=== PATIENT | male | born 1940 | race Two or more races ===

== ENCOUNTER 2018-06-06 09:20 | Inpatient (IN) | payer MEDICARE, MEDICAID ==
[~2018-06-06] VITALS: Ht 170.2 cm; Wt 93.0 kg
[~2018-06-06 09:20] MED LIST: ASA5EC; CEPH500C2; COLL30OI; GABA-290; HYDR-4009; INSU100I19; INSU100I3; LISI40TA4; METO100T16; SIMV20TA6
[2018-06-06] MEDS ORDERED: SODIUM CHLORIDE 0.9% 500 ML IV ONE (10:15)
[2018-06-06 11:19] LABS: BASOPHILS % 0.5 % (0.0-2.0); EOSINOPHILS % 0.4 % (0.0-5.0); HEMATOCRIT. 37.5 % (42.0-52.0); HEMOGLOBIN. 12.7 g/dL (14.0-18.0); MEAN CORPUSCULAR HEMOGLOBIN 32.1 pg (28.0-32.0); MEAN CORPUSCULAR VOLUME 94.6 fL (80.0-94.0); MONOCYTES % 6.9 % (2.0-8.0); NEUTROPHILS % 81.2 % (40.0-76.0); PLATELET 174 x1000/uL (130-400); RED BLOOD CELL COUNT 3.96 mill/uL (4.7-6.1); RED CELL DISTRIBUTION WIDTH 13.9 % (11.6-14.6)
[2018-06-06 11:25] LABS: CHLORIDE 112 mEq/L (98-107); PROTHROMBIN TIME 10.3 sec (9.1-11.1)
[2018-06-06] MEDS ORDERED: DEXT 10% WATER 1,000 ML IV SCH (11:45)
[2018-06-06] MEDS ORDERED: DEXTROSE 50% WATER 50ML SYRINGE IV ONE ×2 (11:45)
[2018-06-06] MEDS ORDERED: HYDRALAZINE 20MG/ML VIAL IV ONE (12:30)
[2018-06-06 15:00] VITALS: BP 158/75
[2018-06-06] MEDS ORDERED: NA PHOS,M-B/NA PHOS,DI-BA ENEMA 118ML PR PRN (15:00)
[2018-06-06] MEDS ORDERED: DEXTROSE 50% WATER 50ML SYRINGE IV PRN (15:00)
[2018-06-06] MEDS: DEXT 5%/0.9% NACL 1,000 ML IV SCH (15:00)
[2018-06-06] MEDS ORDERED: ACETAMINOPHEN 325MG TABLET PO PRN (15:00)
[2018-06-06] MEDS ORDERED: DOCUSATE SODIUM 100MG CAPSULE PO PRN (15:00)
[2018-06-06] MEDS ORDERED: IPRATROPIUM/ALBUTEROL 0.5-3(2.5)MG/3ML NEB INH PRN (15:00)
[2018-06-06] MEDS ORDERED: MAGNESIUM/ALUMINUM HYDROXIDE/SIMETHICONE 30ML UDC PO PRN (15:00)
[2018-06-06] MEDS ORDERED: NITROGLYCERIN 0.4MG TABLET SL SL PRN (15:00)
[2018-06-06] MEDS ORDERED: ONDANSETRON HCL 4MG/2ML INJ IV PRN (15:00)
[2018-06-06] MEDS ORDERED: GUAIFENESIN 200MG/10ML SUGAR FREE UDC PO PRN (15:00)
[2018-06-06 16:00] VITALS: BP 154/95
[2018-06-06] MEDS: CLONIDINE 0.1MG TABLET PO PRN (16:48)
[2018-06-06] MEDS: ENOXAPARIN 40MG/0.4ML SYR SUBCUT SCH (16:49)
[2018-06-06] MEDS: DIPHENHYDRAMINE 50MG/ML VIAL IV PRN (16:51)
[2018-06-06] MEDS: BLOOD SUGAR DIAGNOSTIC STRIP TEST SCH ×2 (17:30→20:52)
[2018-06-06 18:00] VITALS: BP 157/74
[2018-06-06] MEDS: INSULIN LISPRO 100 UNITS/ML SUBCUT SCH ×2 (19:01→21:05)
[2018-06-06 19:12] LABS: TOTAL IRON BINDING CAPACITY 240 ug/dL (250-450)
[2018-06-06 19:31] LABS: FOLIC ACID (FOLATE) SERUM 8.8 ng/mL (>5.38)
[2018-06-06 20:00] VITALS: BP 155/108
[2018-06-06] MEDS: FAMOTIDINE 20MG TABLET PO SCH (20:52)
[2018-06-06] MEDS: METOPROLOL TARTRATE 25MG TABLET PO SCH (20:52)
[2018-06-06] MEDS: LISINOPRIL 20MG TABLET PO SCH (20:52)
[2018-06-06] MEDS ORDERED: ZOLPIDEM TARTRATE 5MG TABLET PO PRN (21:00)
[2018-06-06 22:00] VITALS: BP 137/49
[2018-06-07] VITALS (12 sets, daily range): BP systolic 105–169; BP diastolic 43–83
[2018-06-07] MEDS: BLOOD SUGAR DIAGNOSTIC STRIP TEST SCH ×4 (07:34→21:00)
[2018-06-07] MEDS: LISINOPRIL 20MG TABLET PO SCH (08:15)
[2018-06-07] MEDS: AMLODIPINE 5MG TABLET PO SCH (08:16)
[2018-06-07] MEDS: ASPIRIN 325MG EC TABLET PO SCH (08:16)
[2018-06-07] MEDS: DEXT 5%/0.9% NACL 1,000 ML IV SCH (08:20)
[2018-06-07] MEDS: INSULIN LISPRO 100 UNITS/ML SUBCUT SCH ×4 (08:42→20:50)
[2018-06-07 08:52] LABS: BASOPHILS % 0.7 % (0.0-2.0); EOSINOPHILS % 1.6 % (0.0-5.0); HEMATOCRIT. 33.5 % (42.0-52.0); HEMOGLOBIN. 11.4 g/dL (14.0-18.0); LYMPHOCYTES % 15.5 % (20.0-50.0); MEAN CORPUSCULAR HEMOGLOBIN 32.3 pg (28.0-32.0); MEAN CORPUSCULAR VOLUME 94.9 fL (80.0-94.0); MEAN PLATELET VOLUME 9.1 fl (7.4-10.4); MONOCYTES % 6.8 % (2.0-8.0); NEUTROPHILS % 75.4 % (40.0-76.0); PLATELET 151 x1000/uL (130-400); RED BLOOD CELL COUNT 3.53 mill/uL (4.7-6.1); RED CELL DISTRIBUTION WIDTH 14.1 % (11.6-14.6)
[2018-06-07 08:58] LABS: CHLORIDE 112 mEq/L (98-107)
[2018-06-07] MEDS: METOPROLOL TARTRATE 25MG TABLET PO SCH ×2 (09:50→20:45)
[2018-06-07] MEDS ORDERED: SODIUM POLYSTYRENE SULFONATE 15 G/60 ML BOT PO NR (10:45)
[2018-06-07] MEDS: CLONIDINE 0.1MG TABLET PO PRN (13:32)
[2018-06-07] MEDS ORDERED: DOCU250C14 MT (14:32)
[2018-06-07] MEDS ORDERED: NIFE30TA83 MT (14:36)
[2018-06-07] MEDS ORDERED: [UNRECOGNIZED DRUG - OTHER] PO (14:38)
[2018-06-07] MEDS: ENOXAPARIN 40MG/0.4ML SYR SUBCUT SCH (14:51)
[2018-06-07 15:54] LABS: CREATINE KINASE 46 IU/L (39-308)
[2018-06-07 16:43] LABS: CLARITY URINE CLEAR (CLEAR); COLOR URINE YELLOW (YELLOW); KETONES URINE NEGATIVE (NEGATIVE); LEUKOCYTE ESTERASE URINE NEGATIVE (NEGATIVE); NITRITE URINE NEGATIVE (NEGATIVE); OCCULT BLOOD URINE NEGATIVE (NEGATIVE); PH URINE 5.5 (4.5-8.0); PROTEIN URINE 2+ (NEGATIVE); SPECIFIC GRAVITY URINE 1.015 (1.005-1.030); UROBILINOGEN URINE 0.2 E.U./dL (0.2-1.0)
[2018-06-07] MEDS: MINOXIDIL 2.5MG TABLET PO SCH (17:49)
[2018-06-07] MEDS: FAMOTIDINE 20MG TABLET PO SCH (20:44)
[2018-06-08] VITALS (12 sets, daily range): BP systolic 103–163; BP diastolic 39–79
[2018-06-08] MEDS: DIPHENHYDRAMINE 50MG/ML VIAL IV PRN (02:26)
[2018-06-08] MEDS: BLOOD SUGAR DIAGNOSTIC STRIP TEST SCH ×4 (07:23→21:00)
[2018-06-08] MEDS: INSULIN LISPRO 100 UNITS/ML SUBCUT SCH ×4 (08:00→22:00)
[2018-06-08] MEDS: ASPIRIN 325MG EC TABLET PO SCH (08:51)
[2018-06-08] MEDS: METOPROLOL TARTRATE 25MG TABLET PO SCH ×2 (08:53→21:00)
[2018-06-08] MEDS: AMLODIPINE 5MG TABLET PO SCH (08:53)
[2018-06-08] MEDS: MINOXIDIL 2.5MG TABLET PO SCH (08:53)
[2018-06-08 10:35] LABS: BASOPHILS % 0.7 % (0.0-2.0); EOSINOPHILS % 1.8 % (0.0-5.0); HEMATOCRIT. 32.7 % (42.0-52.0); HEMOGLOBIN. 11.1 g/dL (14.0-18.0); LYMPHOCYTES % 17.1 % (20.0-50.0); MEAN CORPUSCULAR HEMOGLOBIN 32.2 pg (28.0-32.0); MEAN CORPUSCULAR VOLUME 94.9 fL (80.0-94.0); MEAN PLATELET VOLUME 9.2 fl (7.4-10.4); MONOCYTES % 5.8 % (2.0-8.0); NEUTROPHILS % 74.6 % (40.0-76.0); PLATELET 133 x1000/uL (130-400); RED BLOOD CELL COUNT 3.45 mill/uL (4.7-6.1); RED CELL DISTRIBUTION WIDTH 13.6 % (11.6-14.6)
[2018-06-08] MEDS: ENOXAPARIN 30MG/0.3ML SYR SUBCUT SCH (14:57)
[2018-06-08] MEDS: FAMOTIDINE 20MG TABLET PO SCH (21:00)
[2018-06-09] VITALS (13 sets, daily range): BP systolic 95–150; BP diastolic 37–110
[2018-06-09] MEDS: CLONIDINE 0.1MG TABLET PO PRN (00:41)
[2018-06-09 07:49] LABS: HEPATITIS B SURFACE ANTIGEN NEGATIVE
[2018-06-09] MEDS: BLOOD SUGAR DIAGNOSTIC STRIP TEST SCH ×4 (08:06→21:00)
[2018-06-09] MEDS: ENOXAPARIN 30MG/0.3ML SYR SUBCUT SCH (08:33)
[2018-06-09] MEDS: ASPIRIN 325MG EC TABLET PO SCH (08:34)
[2018-06-09] MEDS: METOPROLOL TARTRATE 25MG TABLET PO SCH ×2 (08:35→21:10)
[2018-06-09] MEDS: MINOXIDIL 2.5MG TABLET PO SCH (08:35)
[2018-06-09] MEDS: AMLODIPINE 5MG TABLET PO SCH (08:35)
[2018-06-09] MEDS: INSULIN LISPRO 100 UNITS/ML SUBCUT SCH ×4 (08:37→21:11)
[2018-06-09] MEDS: FAMOTIDINE 20MG TABLET PO SCH (21:10)
[2018-06-10] VITALS (8 sets, daily range): BP systolic 98–186; BP diastolic 30–58
[2018-06-10 05:46] LABS: BASOPHILS % 0.7 % (0.0-2.0); EOSINOPHILS % 2.7 % (0.0-5.0); HEMATOCRIT. 30.6 % (42.0-52.0); HEMOGLOBIN. 10.5 g/dL (14.0-18.0); LYMPHOCYTES % 14.3 % (20.0-50.0); MEAN CORPUSCULAR HEMOGLOBIN 32.6 pg (28.0-32.0); MEAN CORPUSCULAR VOLUME 94.8 fL (80.0-94.0); MEAN PLATELET VOLUME 9.5 fl (7.4-10.4); MONOCYTES % 8.2 % (2.0-8.0); NEUTROPHILS % 74.1 % (40.0-76.0); PLATELET 147 x1000/uL (130-400); RED BLOOD CELL COUNT 3.23 mill/uL (4.7-6.1); RED CELL DISTRIBUTION WIDTH 13.6 % (11.6-14.6)
[2018-06-10] MEDS: BLOOD SUGAR DIAGNOSTIC STRIP TEST SCH ×4 (08:25→21:00)
[2018-06-10] MEDS: ENOXAPARIN 30MG/0.3ML SYR SUBCUT SCH (08:35)
[2018-06-10] MEDS: AMLODIPINE 5MG TABLET PO SCH (08:36)
[2018-06-10] MEDS: MINOXIDIL 2.5MG TABLET PO SCH (08:36)
[2018-06-10] MEDS: METOPROLOL TARTRATE 25MG TABLET PO SCH ×2 (08:36→21:01)
[2018-06-10] MEDS: INSULIN LISPRO 100 UNITS/ML SUBCUT SCH ×4 (08:37→22:31)
[2018-06-10] MEDS: ASPIRIN 325MG EC TABLET PO SCH (08:37)
[2018-06-10] MEDS: TRAMADOL 50MG TABLET PO PRN (13:25)
[2018-06-10] MEDS: DUTASTERIDE 0.5MG CAPSULE PO SCH (14:07)
[2018-06-10 17:32] LABS: CLARITY URINE TURBID (CLEAR); COLOR URINE RED (YELLOW); KETONES URINE NEGATIVE (NEGATIVE); LEUKOCYTE ESTERASE URINE 2+ (NEGATIVE); NITRITE URINE POSITIVE (NEGATIVE); OCCULT BLOOD URINE 2+ (NEGATIVE); PROTEIN URINE 2+ (NEGATIVE); SPECIFIC GRAVITY URINE 1.015 (1.005-1.030); UROBILINOGEN URINE 0.2 E.U./dL (0.2-1.0)
[2018-06-10] MEDS: TAMSULOSIN HCL 0.4MG SR CAPSULE PO SCH (21:00)
[2018-06-10] MEDS: FAMOTIDINE 20MG TABLET PO SCH (21:02)
[2018-06-11 06:06] LABS: BASOPHILS % 0.8 % (0.0-2.0); EOSINOPHILS % 1.8 % (0.0-5.0); HEMATOCRIT. 30.7 % (42.0-52.0); HEMOGLOBIN. 10.5 g/dL (14.0-18.0); LYMPHOCYTES % 9.5 % (20.0-50.0); MEAN CORPUSCULAR HEMOGLOBIN 32.4 pg (28.0-32.0); MEAN CORPUSCULAR VOLUME 94.6 fL (80.0-94.0); MEAN PLATELET VOLUME 9.7 fl (7.4-10.4); MONOCYTES % 6.6 % (2.0-8.0); NEUTROPHILS % 81.3 % (40.0-76.0); PLATELET 143 x1000/uL (130-400); RED BLOOD CELL COUNT 3.24 mill/uL (4.7-6.1); RED CELL DISTRIBUTION WIDTH 13.5 % (11.6-14.6)
[2018-06-11 07:45] VITALS: BP 140/73
[2018-06-11] MEDS: BLOOD SUGAR DIAGNOSTIC STRIP TEST SCH ×2 (07:48→13:06)
[2018-06-11] MEDS: DUTASTERIDE 0.5MG CAPSULE PO SCH (08:22)
[2018-06-11] MEDS: AMLODIPINE 5MG TABLET PO SCH (08:23)
[2018-06-11] MEDS: TAMSULOSIN HCL 0.4MG SR CAPSULE PO SCH (08:23)
[2018-06-11] MEDS: MINOXIDIL 2.5MG TABLET PO SCH (08:23)
[2018-06-11] MEDS: METOPROLOL TARTRATE 25MG TABLET PO SCH (08:23)
[2018-06-11] MEDS: ASPIRIN 325MG EC TABLET PO SCH (08:23)
[2018-06-11] MEDS: INSULIN LISPRO 100 UNITS/ML SUBCUT SCH ×2 (08:27→13:12)
[2018-06-11] MEDS: ENOXAPARIN 30MG/0.3ML SYR SUBCUT SCH (08:53)
[2018-06-11 09:10] LABS: COMPLEMENT C3 110 mg/dL (82-167)
[2018-06-11 12:36] VITALS: BP 107/61
[2018-06-11 12:38] VITALS: BP 107/61
[2018-06-11] MEDS ORDERED: SODIUM POLYSTYRENE SULFONATE 15 G/60 ML BOT PO SCH (14:00)
[2018-06-11 15:19] VITALS: BP 118/70
[2018-06-11] MEDS: TRAMADOL 50MG TABLET PO PRN (15:19)
[2018-06-12 13:06] LABS: ANTI-NUCLEAR ANTIBODIES DIRECT Negative (Negative)
== END 2018-06-11 16:55 | disposition home or self-care (01) | DRG 91 ==
LOC: ER 09:35 → 5EST 11:44 → EDBEDREQSVC 11:45 → EDBEDREQTM 11:45 → EDBEDREQ 11:45 → ENRESERV 12:05 → 5EST 06-08 15:55
PROVIDERS: ADMIT Internal Medicine; ATTEND Internal Medicine
DX: G92 Toxic encephalopathy (principal); N17.0 Acute kidney failure with tubular necrosis; E44.0 Moderate protein-calorie malnutrition; I13.0 Hypertensive heart and chronic kidney disease with heart failure and stage 1 through stage 4 chronic kidney disease, or unspecified chronic kidney disease; L03.113 Cellulitis of right upper limb; E11.42 Type 2 diabetes mellitus with diabetic polyneuropathy; R33.9 Retention of urine, unspecified; E11.649 Type 2 diabetes mellitus with hypoglycemia without coma; D63.8 Anemia in other chronic diseases classified elsewhere; E11.21 Type 2 diabetes mellitus with diabetic nephropathy; E11.22 Type 2 diabetes mellitus with diabetic chronic kidney disease; E11.51 Type 2 diabetes mellitus with diabetic peripheral angiopathy without gangrene; E78.00 Pure hypercholesterolemia, unspecified; E78.5 Hyperlipidemia, unspecified; E83.51 Hypocalcemia; E87.5 Hyperkalemia; N18.9 Chronic kidney disease, unspecified; Z79.4 Long term (current) use of insulin; Z79.899 Other long term (current) drug therapy; Z79.82 Long term (current) use of aspirin; Z79.1 Long term (current) use of non-steroidal anti-inflammatories (NSAID); Z68.32 Body mass index [BMI] 32.0-32.9, adult
CPT/HCPCS: 36415; 71045; 76770; 80048; 82550; 82570; 82607; 82746; 82962; 83036; 83540; 83550; 83735; 83880; 84156; 84484; 86038; 86160; 86803; 87340; 93005; 93970; 96361; 96374; 96375; 97162; 99291; A6261; J0360; J1200; J1650; J1815; J2405; J7040; J7042; A4315

== ENCOUNTER 2021-03-16 17:43 | Inpatient (IN) | payer MEDICARE, MEDICAID ==
[~2021-03-16] VITALS: Ht 177.8 cm; Wt 78.9 kg
[~2021-03-16 17:43] MED LIST changes: -ASA5EC; +ASPI-867; +DOCU250C14 MT; -LISI40TA4; +NIFE-33 MT; +SIMV-43; -SIMV20TA6; +[UNRECOGNIZED DRUG - OTHER] PO
[2021-03-16] MEDS ORDERED: PIPERACILLIN/TAZ 3.375G PREMIX 50 ML IV ONE (18:15)
[2021-03-16] MEDS ORDERED: ACETAMINOPHEN 325MG TABLET PO ONE (18:15)
[2021-03-16] MEDS ORDERED: VANCOMYCIN 1 G PREMIX 200 ML IV ONE (18:15)
[2021-03-16 18:39] LABS: BASOPHILS % 0.3 % (0.0-2.0); EOSINOPHILS % 1.1 % (0.0-5.0); HEMATOCRIT. 24.8 % (42.0-52.0); HEMOGLOBIN. 7.9 g/dL (14.0-18.0); LYMPHOCYTES % 9.5 % (20.0-50.0); MEAN CORPUSCULAR HEMOGLOBIN 29.6 pg (28.0-32.0); MEAN CORPUSCULAR VOLUME 92.7 fL (80.0-94.0); MEAN PLATELET VOLUME 7.4 fl (7.4-10.4); MONOCYTES % 5.9 % (2.0-8.0); NEUTROPHILS % 83.2 % (40.0-76.0); PLATELET 372 x1000/uL (130-400); RED BLOOD CELL COUNT 2.68 mill/uL (4.7-6.1); RED CELL DISTRIBUTION WIDTH 16.3 % (11.6-14.6)
[2021-03-16 18:46] LABS: CHLORIDE 101 mEq/L (98-107)
[2021-03-16 18:47] LABS: PROTHROMBIN TIME 11.2 sec (9.6-11.0)
[2021-03-17 06:30] VITALS: BP 147/45
[2021-03-17 07:51] VITALS: BP 130/45
[2021-03-17] MEDS ORDERED: CLOP75TA33 MT (08:59)
[2021-03-17] MEDS ORDERED: AMLO10TA80 MT (08:59)
[2021-03-17] MEDS ORDERED: FOLI0.8T23 MT (08:59)
[2021-03-17] MEDS ORDERED: OMEP20CA14 MT (08:59)
[2021-03-17] MEDS ORDERED: LISI40TA13 MT (08:59)
[2021-03-17] MEDS ORDERED: FURO40TA5 MT (08:59)
[2021-03-17] MEDS ORDERED: ONDANSETRON HCL 4MG/2ML INJ IV PRN (09:15)
[2021-03-17] MEDS ORDERED: DEXTROSE 50% WATER 50ML SYRINGE IV PRN (09:15)
[2021-03-17] MEDS ORDERED: ACETAMINOPHEN 325MG TABLET PO PRN (09:15)
[2021-03-17 09:25] VITALS: BP 130/45
[2021-03-17 11:19] VITALS: BP 125/53
[2021-03-17] MEDS: PIPERACILLIN/TAZOBACTAM 3.375 G in DEXTROSE 5% WATER 50 ML IV SCH ×2 (11:26→21:48)
[2021-03-17] MEDS ORDERED: LIDOCAINE HCL 1% 20ML VIAL (Pyxis) INJ INFIL STA (12:36)
[2021-03-17] MEDS ORDERED: LIDOCAINE HCL 2% JELLY 5ML TOP ONE (12:45)
[2021-03-17] MEDS: INSULIN LISPRO 100 UNITS/ML SUBCUT SCH ×3 (12:46→21:49)
[2021-03-17] MEDS: BLOOD SUGAR DIAGNOSTIC STRIP TEST SCH ×3 (12:50→21:13)
[2021-03-17] MEDS ORDERED: PIPERACILLIN/TAZOBACTAM 3.375 G in DEXTROSE 5% WATER 50 ML IV SCH (14:00)
[2021-03-17] MEDS: SODIUM HYPOCHLORITE 0.125% 473ML SOLUTION TOP SCH (15:00)
[2021-03-17 15:21] VITALS: BP 131/48
[2021-03-17] MEDS ORDERED: VANCOMYCIN 500 MG PREMIX 100 ML IV NR (16:00)
[2021-03-17 20:00] VITALS: BP 141/45
[2021-03-17] MEDS: INSULIN GLARGINE UD 100 UNITS/ML SYR SUBCUT SCH (21:50)
[2021-03-18 00:20] VITALS: BP 131/48
[2021-03-18 04:00] VITALS: BP 122/48
[2021-03-18] MEDS: BLOOD SUGAR DIAGNOSTIC STRIP TEST SCH ×4 (07:28→21:02)
[2021-03-18] MEDS: INSULIN LISPRO 100 UNITS/ML SUBCUT SCH ×4 (07:29→21:00)
[2021-03-18 08:00] VITALS: BP 138/45
[2021-03-18] MEDS: PIPERACILLIN/TAZOBACTAM 3.375 G in DEXTROSE 5% WATER 50 ML IV SCH ×2 (09:00→22:24)
[2021-03-18] MEDS: INSULIN GLARGINE UD 100 UNITS/ML SYR SUBCUT SCH ×2 (11:58→21:03)
[2021-03-18 12:00] VITALS: BP 135/69
[2021-03-18] MEDS: SODIUM HYPOCHLORITE 0.125% 473ML SOLUTION TOP SCH (12:32)
[2021-03-18 16:00] VITALS: BP 137/47
[2021-03-18 16:04] LABS: BASOPHILS % 0.4 % (0.0-2.0); EOSINOPHILS % 1.6 % (0.0-5.0); HEMATOCRIT. 23.7 % (42.0-52.0); HEMOGLOBIN. 8.4 g/dL (14.0-18.0); LYMPHOCYTES % 11.3 % (20.0-50.0); MEAN CORPUSCULAR HEMOGLOBIN 32.6 pg (28.0-32.0); MEAN CORPUSCULAR VOLUME 91.9 fL (80.0-94.0); MEAN PLATELET VOLUME 7.3 fl (7.4-10.4); MONOCYTES % 6.3 % (2.0-8.0); NEUTROPHILS % 80.4 % (40.0-76.0); PLATELET 349 x1000/uL (130-400); RED BLOOD CELL COUNT 2.58 mill/uL (4.7-6.1); RED CELL DISTRIBUTION WIDTH 15.9 % (11.6-14.6)
[2021-03-18 16:35] LABS: HEPATITIS B SURFACE ANTIGEN NEGATIVE
[2021-03-18 20:00] VITALS: BP 137/49
[2021-03-18] MEDS: EPOETIN ALFA-EPBX 10,000 UNIT/ML VIAL SUBCUT SCH (21:25)
[2021-03-19] VITALS (8 sets, daily range): BP systolic 109–138; BP diastolic 50–77
[2021-03-19] MEDS: BLOOD SUGAR DIAGNOSTIC STRIP TEST SCH ×4 (06:38→21:51)
[2021-03-19] MEDS: INSULIN LISPRO 100 UNITS/ML SUBCUT SCH ×4 (07:07→22:01)
[2021-03-19] MEDS: SODIUM HYPOCHLORITE 0.125% 473ML SOLUTION TOP SCH (08:18)
[2021-03-19] MEDS: PIPERACILLIN/TAZOBACTAM 3.375 G in DEXTROSE 5% WATER 50 ML IV SCH ×2 (08:18→22:01)
[2021-03-19] MEDS ORDERED: LIDOCAINE HCL 1% 30ML VIAL (10MG/ML) ONE (08:24)
[2021-03-19] MEDS: INSULIN GLARGINE UD 100 UNITS/ML SYR SUBCUT SCH (11:19)
[2021-03-19] MEDS ORDERED: VANCOMYCIN 750 MG PREMIX 150 ML IV NR (12:00)
[2021-03-19] MEDS ORDERED: IOHEXOL-350 100 ML BOTTLE ONE (15:19)
[2021-03-20] VITALS (10 sets, daily range): BP systolic 127–164; BP diastolic 46–70
[2021-03-20 00:32] LABS: HEMATOCRIT 28.6 % (42.0-52.0); HEMOGLOBIN 9.6 g/dL (14.0-18.0)
[2021-03-20 07:12] LABS: HEMATOCRIT 30.6 % (42.0-52.0); HEMOGLOBIN 10.1 g/dL (14.0-18.0)
[2021-03-20] MEDS: BLOOD SUGAR DIAGNOSTIC STRIP TEST SCH ×4 (07:25→21:58)
[2021-03-20] MEDS: SODIUM HYPOCHLORITE 0.125% 473ML SOLUTION TOP SCH (08:35)
[2021-03-20] MEDS: PIPERACILLIN/TAZOBACTAM 3.375 G in DEXTROSE 5% WATER 50 ML IV SCH ×2 (08:35→21:58)
[2021-03-20] MEDS: INSULIN LISPRO 100 UNITS/ML SUBCUT SCH ×4 (08:36→21:59)
[2021-03-20 22:28] LABS: HEPATITIS B SURFACE ANTIGEN NEGATIVE
[2021-03-21] VITALS: BP 143/49
[2021-03-21 04:00] VITALS: BP 134/43
[2021-03-21 08:00] VITALS: BP 136/56
[2021-03-21] MEDS: BLOOD SUGAR DIAGNOSTIC STRIP TEST SCH ×4 (08:14→21:00)
[2021-03-21] MEDS: INSULIN LISPRO 100 UNITS/ML SUBCUT SCH ×4 (08:15→21:00)
[2021-03-21] MEDS: PIPERACILLIN/TAZOBACTAM 3.375 G in DEXTROSE 5% WATER 50 ML IV SCH (08:16)
[2021-03-21 12:00] VITALS: BP 159/78
[2021-03-21] MEDS: SODIUM HYPOCHLORITE 0.125% 473ML SOLUTION TOP SCH (12:18)
[2021-03-21 13:33] LABS: BASOPHILS % 0.5 % (0.0-2.0); EOSINOPHILS % 1.3 % (0.0-5.0); HEMATOCRIT. 30.3 % (42.0-52.0); LYMPHOCYTES % 9.1 % (20.0-50.0); MEAN CORPUSCULAR VOLUME 91.1 fL (80.0-94.0); MEAN PLATELET VOLUME 7.1 fl (7.4-10.4); MONOCYTES % 4.7 % (2.0-8.0); NEUTROPHILS % 84.4 % (40.0-76.0); PLATELET 354 x1000/uL (130-400); RED BLOOD CELL COUNT 3.32 mill/uL (4.7-6.1); RED CELL DISTRIBUTION WIDTH 15.4 % (11.6-14.6)
[2021-03-21] MEDS: PANTOPRAZOLE SODIUM 40 MG/VIAL IV SCH (13:42)
[2021-03-21 16:00] VITALS: BP 151/67
[2021-03-21] MEDS ORDERED: HEPARIN SODIUM 1,000 UNIT/1ML VIAL IV ONE (17:00)
[2021-03-21] MEDS: CEFEPIME 1,000 MG in DEXTROSE 5% WATER 50 ML IV SCH (18:50)
[2021-03-21 20:00] VITALS: BP 142/62
[2021-03-21] MEDS ORDERED: VANCOMYCIN 750 MG PREMIX 150 ML IV NR (22:00)
[2021-03-22] VITALS (7 sets, daily range): BP systolic 99–142; BP diastolic 46–77
[2021-03-22] MEDS: PANTOPRAZOLE SODIUM 40 MG/VIAL IV SCH (07:59)
[2021-03-22] MEDS: BLOOD SUGAR DIAGNOSTIC STRIP TEST SCH ×4 (08:00→21:36)
[2021-03-22] MEDS: INSULIN LISPRO 100 UNITS/ML SUBCUT SCH ×4 (08:01→21:31)
[2021-03-22] MEDS: SODIUM HYPOCHLORITE 0.125% 473ML SOLUTION TOP SCH (08:08)
[2021-03-22] MEDS ORDERED: VANCOMYCIN HCL 1 GM/VIAL ONE (12:31)
[2021-03-22] MEDS ORDERED: POLYMYXIN B SULFATE 500000 UNITS/VIAL ONE (12:32)
[2021-03-22 13:11] LABS: BASOPHILS % 0.5 % (0.0-2.0); EOSINOPHILS % 1.7 % (0.0-5.0); HEMATOCRIT. 31.3 % (42.0-52.0); HEMOGLOBIN. 10.2 g/dL (14.0-18.0); LYMPHOCYTES % 9.3 % (20.0-50.0); MEAN CORPUSCULAR HEMOGLOBIN 29.7 pg (28.0-32.0); MEAN CORPUSCULAR VOLUME 90.6 fL (80.0-94.0); MEAN PLATELET VOLUME 6.8 fl (7.4-10.4); MONOCYTES % 6.1 % (2.0-8.0); NEUTROPHILS % 82.4 % (40.0-76.0); PLATELET 378 x1000/uL (130-400); RED BLOOD CELL COUNT 3.45 mill/uL (4.7-6.1); RED CELL DISTRIBUTION WIDTH 15.7 % (11.6-14.6)
[2021-03-22] MEDS ORDERED: MIDAZOLAM HCL 2 MG/2 ML VIAL ONE (13:18)
[2021-03-22] MEDS ORDERED: PROPOFOL 200MG/20ML VIAL IV ONE (13:18)
[2021-03-22] MEDS ORDERED: FENTANYL CITRATE/PF 50MCG/ML 2ML VIAL ONE (13:18)
[2021-03-22] MEDS ORDERED: LIDOCAINE HCL 1% 20ML VIAL (Pyxis) INJ ONE (13:19)
[2021-03-22] MEDS ORDERED: ROPIVACAINE HCL 10MG/ML 20 ML VIAL EPI ONE (13:37)
[2021-03-22] MEDS ORDERED: CEFAZOLIN SODIUM 1000MG/VIAL ONE (14:02)
[2021-03-22] MEDS ORDERED: PHENYLEPHRINE HCL 10 MG/ML 1ML (IV VIAL) IV ONE (14:35)
[2021-03-22] MEDS: CEFEPIME 1,000 MG in DEXTROSE 5% WATER 50 ML IV SCH (17:32)
[2021-03-22] MEDS ORDERED: NALOXONE HCL 0.4MG/ML VIAL IV PRN (19:15)
[2021-03-22] MEDS ORDERED: HYDROCODONE/ACETAMINOPHEN 5/325MG TABLET PO PRN (19:15)
[2021-03-22] MEDS: MORPHINE SULFATE 2 MG/ML CPJ (NOT FOR IM USE) IV PRN (19:20)
[2021-03-23] VITALS: BP 144/70
[2021-03-23 04:00] VITALS: BP 151/55
[2021-03-23 06:42] LABS: BASOPHILS % 0.5 % (0.0-2.0); EOSINOPHILS % 0.8 % (0.0-5.0); HEMATOCRIT. 26.1 % (42.0-52.0); HEMOGLOBIN. 8.5 g/dL (14.0-18.0); LYMPHOCYTES % 8.3 % (20.0-50.0); MEAN CORPUSCULAR HEMOGLOBIN 29.8 pg (28.0-32.0); MEAN CORPUSCULAR VOLUME 91.8 fL (80.0-94.0); MEAN PLATELET VOLUME 7.2 fl (7.4-10.4); MONOCYTES % 6.5 % (2.0-8.0); NEUTROPHILS % 83.9 % (40.0-76.0); PLATELET 351 x1000/uL (130-400); RED BLOOD CELL COUNT 2.84 mill/uL (4.7-6.1); RED CELL DISTRIBUTION WIDTH 15.6 % (11.6-14.6)
[2021-03-23] MEDS: BLOOD SUGAR DIAGNOSTIC STRIP TEST SCH ×4 (06:50→21:27)
[2021-03-23] MEDS: SODIUM HYPOCHLORITE 0.125% 473ML SOLUTION TOP SCH (07:41)
[2021-03-23 08:00] VITALS: BP 108/68
[2021-03-23] MEDS: PANTOPRAZOLE SODIUM 40 MG/VIAL IV SCH (09:01)
[2021-03-23] MEDS: INSULIN LISPRO 100 UNITS/ML SUBCUT SCH ×4 (09:05→21:38)
[2021-03-23] MEDS: MORPHINE SULFATE 2 MG/ML CPJ (NOT FOR IM USE) IV PRN ×2 (11:36→16:57)
[2021-03-23 12:00] VITALS: BP 156/44
[2021-03-23 16:09] VITALS: BP 143/60
[2021-03-23] MEDS: CEFEPIME 1,000 MG in DEXTROSE 5% WATER 50 ML IV SCH (17:11)
[2021-03-23 20:00] VITALS: BP 118/58
[2021-03-23] MEDS: EPOETIN ALFA-EPBX 10,000 UNIT/ML VIAL SUBCUT SCH (21:26)
[2021-03-24] VITALS: BP 131/60
[2021-03-24 04:00] VITALS: BP 155/65
[2021-03-24] MEDS: BLOOD SUGAR DIAGNOSTIC STRIP TEST SCH ×4 (06:38→21:21)
[2021-03-24] MEDS: INSULIN LISPRO 100 UNITS/ML SUBCUT SCH ×4 (06:56→21:21)
[2021-03-24] MEDS: SODIUM HYPOCHLORITE 0.125% 473ML SOLUTION TOP SCH (06:57)
[2021-03-24 07:54] VITALS: BP 136/69
[2021-03-24] MEDS: FAMOTIDINE 20MG/2ML VIAL IV SCH (09:34)
[2021-03-24 12:16] VITALS: BP 156/68
[2021-03-24 16:00] VITALS: BP 140/51
[2021-03-24 16:03] LABS: HEPATITIS B SURFACE ANTIGEN NEGATIVE
[2021-03-24] MEDS: CEFEPIME 1,000 MG in DEXTROSE 5% WATER 50 ML IV SCH (17:41)
[2021-03-24 20:39] VITALS: BP 146/58
[2021-03-25 00:20] VITALS: BP 139/61
[2021-03-25 04:00] VITALS: BP 123/66
[2021-03-25] MEDS: BLOOD SUGAR DIAGNOSTIC STRIP TEST SCH ×4 (06:12→20:44)
[2021-03-25 08:00] VITALS: BP 151/61
[2021-03-25] MEDS: INSULIN LISPRO 100 UNITS/ML SUBCUT SCH ×4 (08:27→20:56)
[2021-03-25] MEDS: FAMOTIDINE 20MG/2ML VIAL IV SCH (08:27)
[2021-03-25] MEDS: SODIUM HYPOCHLORITE 0.125% 473ML SOLUTION TOP SCH (09:00)
[2021-03-25 12:00] VITALS: BP 160/71
[2021-03-25] MEDS: MORPHINE SULFATE 2 MG/ML CPJ (NOT FOR IM USE) IV PRN (14:43)
[2021-03-25 16:05] VITALS: BP 145/64
[2021-03-25 17:41] LABS: HEMATOCRIT 24.5 % (42.0-52.0); HEMOGLOBIN 8.1 g/dL (14.0-18.0)
[2021-03-25 17:42] LABS: BASOPHILS % 0.9 % (0.0-2.0); EOSINOPHILS % 2.2 % (0.0-5.0); HEMATOCRIT. 24.6 % (42.0-52.0); HEMOGLOBIN. 8.1 g/dL (14.0-18.0); LYMPHOCYTES % 14.8 % (20.0-50.0); MEAN CORPUSCULAR HEMOGLOBIN 30.1 pg (28.0-32.0); MEAN CORPUSCULAR VOLUME 91.7 fL (80.0-94.0); MONOCYTES % 5.5 % (2.0-8.0); NEUTROPHILS % 76.6 % (40.0-76.0); PLATELET 306 x1000/uL (130-400); RED BLOOD CELL COUNT 2.68 mill/uL (4.7-6.1); RED CELL DISTRIBUTION WIDTH 15.3 % (11.6-14.6)
[2021-03-25 20:00] VITALS: BP 160/37
[2021-03-25] MEDS: CEFEPIME 1,000 MG in DEXTROSE 5% WATER 50 ML IV SCH (20:44)
[2021-03-25] MEDS ORDERED: EPOETIN ALFA-EPBX 10,000 UNIT/ML VIAL SUBCUT SCH (21:00)
[2021-03-26] VITALS (7 sets, daily range): BP systolic 133–158; BP diastolic 24–84
[2021-03-26] MEDS: BLOOD SUGAR DIAGNOSTIC STRIP TEST SCH ×4 (06:54→20:34)
[2021-03-26] MEDS: FAMOTIDINE 20MG/2ML VIAL IV SCH (08:22)
[2021-03-26] MEDS: SODIUM HYPOCHLORITE 0.125% 473ML SOLUTION TOP SCH (08:23)
[2021-03-26] MEDS: INSULIN LISPRO 100 UNITS/ML SUBCUT SCH ×4 (08:23→21:01)
[2021-03-26] MEDS ORDERED: MEGESTROL ACETATE 400 MG/10 ML UDC PO SCH (09:00)
[2021-03-26] MEDS: CEFEPIME 1,000 MG in DEXTROSE 5% WATER 50 ML IV SCH (17:01)
[2021-03-27] MEDS ORDERED: FAMOTIDINE 20MG TABLET PO SCH (09:00)
== END 2021-03-26 21:30 | DRG 853 ==
LOC: ER 17:43 → EDBEDREQTM 22:07 → EDBEDREQ 22:07 → MICUSO 03-17 02:55 → 6WST 03-17 05:15
PROVIDERS: ADMIT Internal Medicine; ATTEND Internal Medicine
PROC: 0KBW0ZZ Excision of Left Foot Muscle, Open Approach (ICD-10-PCS; principal; 2021-03-17)
PROC: 5A1D70Z Performance of Urinary Filtration, Intermittent, Less than 6 Hours Per Day (ICD-10-PCS; 2021-03-18)
PROC: 02HV33Z Insertion of Infusion Device into Superior Vena Cava, Percutaneous Approach (ICD-10-PCS; 2021-03-19)
PROC: B548ZZA Ultrasonography of Superior Vena Cava, Guidance (ICD-10-PCS; 2021-03-19)
PROC: 30233N1 Transfusion of Nonautologous Red Blood Cells into Peripheral Vein, Percutaneous Approach (ICD-10-PCS; 2021-03-19)
PROC: 5A1D70Z Performance of Urinary Filtration, Intermittent, Less than 6 Hours Per Day (ICD-10-PCS; 2021-03-21)
PROC: 0Y6J0Z1 Detachment at Left Lower Leg, High, Open Approach (ICD-10-PCS; 2021-03-22)
PROC: 5A1D70Z Performance of Urinary Filtration, Intermittent, Less than 6 Hours Per Day (ICD-10-PCS; 2021-03-23)
PROC: 5A1D70Z Performance of Urinary Filtration, Intermittent, Less than 6 Hours Per Day (ICD-10-PCS; 2021-03-25)
DX: A41.9 Sepsis, unspecified organism (principal); E43 Unspecified severe protein-calorie malnutrition; N18.6 End stage renal disease; E11.52 Type 2 diabetes mellitus with diabetic peripheral angiopathy with gangrene; L03.116 Cellulitis of left lower limb; I12.0 Hypertensive chronic kidney disease with stage 5 chronic kidney disease or end stage renal disease; E87.1 Hypo-osmolality and hyponatremia; I96 Gangrene, not elsewhere classified; E11.621 Type 2 diabetes mellitus with foot ulcer; E11.22 Type 2 diabetes mellitus with diabetic chronic kidney disease; E11.65 Type 2 diabetes mellitus with hyperglycemia; Z20.822 Contact with and (suspected) exposure to COVID-19; E78.5 Hyperlipidemia, unspecified; L97.529 Non-pressure chronic ulcer of other part of left foot with unspecified severity; R74.01 Elevation of levels of liver transaminase levels; D63.8 Anemia in other chronic diseases classified elsewhere; D50.0 Iron deficiency anemia secondary to blood loss (chronic); Z79.4 Long term (current) use of insulin; Z87.891 Personal history of nicotine dependence; Z89.511 Acquired absence of right leg below knee; Z99.2 Dependence on renal dialysis; Z79.02 Long term (current) use of antithrombotics/antiplatelets; Z79.899 Other long term (current) drug therapy; Z89.431 Acquired absence of right foot; Z68.25 Body mass index [BMI] 25.0-25.9, adult; B96.4 Proteus (mirabilis) (morganii) as the cause of diseases classified elsewhere; B96.89 Other specified bacterial agents as the cause of diseases classified elsewhere
CPT/HCPCS: 36415; 36573; 71045; 72191; 73630; 73706; 80048; 80053; 80202; 82962; 83605; 83880; 84145; 84484; 85014; 85018; 85025; 86705; 86709; 86803; 86850; 86900; 86920; 87070; 87075; 87077; 87186; 87340; 87426; 88307; 88311; 93005; 93306; 93922; 99291; A6261; C1725; C1769; C1893; C9113; J0690; J0692; J0885; J1644; J1815; J2250; J2270; J2370; J2543; J2704; J2795; J3010; J3370; J3490; J7040; J7060; P9016; Q9967; A4315

== ENCOUNTER 2024-11-30 16:23 | Inpatient (IN) | payer MEDICARE, MEDICAID ==
[~2024-11-30] VITALS: Ht 177.8 cm; Wt 80.9 kg
[~2024-11-30 16:23] MED LIST changes: +AMLO10TA80 MT; +ASCO500C14 MT; -ASPI-867; +ASPI-867 PO; -CEPH500C2; +CLOP75TA33 MT; -COLL30OI; +FERR325T6 MT; +FOLI0.8T23 MT; +FURO40TA5 MT; -GABA-290; -HYDR-4009; -INSU100I19; -INSU100I3; +LISI40TA13 MT; -METO100T16; -NIFE-33 MT; +OMEP20CA14 MT; +POTA10CA93 MT; -SIMV-43; +SIMV-43 PO; -[UNRECOGNIZED DRUG - OTHER] PO
[2024-11-30 16:25] VITALS: O2SAT 98
[2024-11-30] MEDS: PIPERACILLIN/TAZO 3.375G/50ML 50 ML IV ONE (17:22)
[2024-11-30 17:29] LABS: CREATININE 4.2 mg/dL (0.6-1.3); ETHANOL BLOOD < 10 mg/dL (<10); UREA NITROGEN BLOOD 51 mg/dL (9-23)
[2024-11-30 17:30] LABS: TROPONIN I HIGH SENSITIVITY 15 ng/L (3.0-53)
[2024-11-30 17:31] LABS: ASPARTATE AMINOTRANSFERASE 749 IU/L (<34); BILIRUBIN DIRECT 1.4 mg/dL (<=3.0); BILIRUBIN TOTAL 2.1 mg/dL (0.1-1.0); PROTEIN TOTAL 7.4 g/dL (6.0-8.3)
[2024-11-30 17:35] LABS: BASOPHILS % 0.3 % (0.0-2.0); EOSINOPHILS % 0.6 % (0.0-5.0); HEMATOCRIT. 38.4 % (42.0-52.0); HEMOGLOBIN. 12.7 g/dL (14.0-18.0); LYMPHOCYTES % 8.7 % (20.0-50.0); MEAN PLATELET VOLUME 9.1 fl (7.4-10.4); MONOCYTES % 1.6 % (2.0-8.0); NEUTROPHILS % 88.8 % (40.0-76.0); PLATELET 176 x1000/uL (130-400); RED BLOOD CELL COUNT 3.84 mill/uL (4.7-6.1); RED CELL DISTRIBUTION WIDTH 15.9 % (11.6-14.6)
[2024-11-30 18:10] LABS: LACTIC ACID 2.3 mmol/L (0.4-2.0)
[2024-11-30 18:32] LABS: INR 1.1
[2024-11-30] MEDS: VANCOMYCIN 1G PREMIX 200 ML IV ONE (18:38)
[2024-11-30] MEDS ORDERED: GUAIFENESIN 200MG/10ML SUGAR FREE UDC PO PRN (20:30)
[2024-11-30] MEDS ORDERED: ACETAMINOPHEN 325MG TABLET PO PRN (20:30)
[2024-11-30] MEDS ORDERED: MAGNESIUM/ALUMINUM HYDROXIDE/SIMETHICONE 30ML UDC PO PRN (20:30)
[2024-11-30] MEDS ORDERED: ONDANSETRON HCL 4MG/2ML INJ IV PRN (20:30)
[2024-11-30] MEDS ORDERED: IPRATROPIUM/ALBUTEROL 0.5-3(2.5)MG/3ML NEB HHN PRN (20:30)
[2024-11-30 20:32] LABS: CLARITY URINE CLEAR (CLEAR); COLOR URINE YELLOW (YELLOW); GLUCOSE URINE 1+ (NEGATIVE); KETONES URINE NEGATIVE (NEGATIVE); LEUKOCYTE ESTERASE URINE NEGATIVE (NEGATIVE); NITRITE URINE NEGATIVE (NEGATIVE); OCCULT BLOOD URINE 1+ (NEGATIVE); PH URINE 8.0 (4.5-8.0); PROTEIN URINE 2+ (NEGATIVE); SPECIFIC GRAVITY URINE 1.010 (1.005-1.030); UROBILINOGEN URINE 0.2 E.U./dL (0.2-1.0)
[2024-11-30 20:41] LABS: SQUAMOUS EPITHELIAL CELL URINE FEW /lpf (RARE/1+); WBC URINE 0-2 /hpf (0-2)
[2024-11-30 20:42] LABS: BACTERIA URINE 2+
[2024-11-30] MEDS ORDERED: CEFEPIME 2GM IN DEXT 5% 100ML IV SCH (20:45)
[2024-11-30 20:50] LABS: *AMPHETAMINES SCREEN URINE NEGATIVE (NEGATIVE); *BARBITURATES SCREEN URINE NEGATIVE (NEGATIVE); *BENZODIAZEPINES SCREEN URINE NEGATIVE (NEGATIVE); *COCAINE SCREEN URINE NEGATIVE (NEGATIVE); CANNABINOID URINE SCREEN NEGATIVE (NEGATIVE); ECSTASY MDMA SCREEN URINE NEGATIVE (NEGATIVE); METHADONE URINE SCREEN NEGATIVE (NEGATIVE); OPIATES URINE SCREEN NEGATIVE (NEGATIVE); PHENCYCLIDINE URINE SCREEN NEGATIVE (NEGATIVE)
[2024-11-30 21:26] LABS: PHOSPHORUS 3.1 mg/dL (2.5-4.9)
[2024-11-30 21:29] LABS: FOLIC ACID (FOLATE) SERUM 16.46 ng/mL (>5.38)
[2024-11-30 21:30] LABS: T4 FREE 1.65 ng/dL (0.89-1.76)
[2024-11-30] MEDS: FAMOTIDINE 20MG/2ML VIAL IV SCH (21:55)
[2024-11-30] MEDS: FUROSEMIDE 40MG/4ML VIAL IVP SCH (21:55)
[2024-11-30] MEDS: ENOXAPARIN 30MG/0.3ML SYR SUBCUT SCH (22:02)
[2024-11-30 22:03] LABS: HEPATITIS A AB IGM NEGATIVE (Negative); HEPATITIS B CORE AB IGM NEGATIVE (Negative)
[2024-11-30 22:04] LABS: HEPATITIS C AB NON REACTIVE (Neg) (Negative)
[2024-11-30 22:47] LABS: VITAMIN B12 SERUM 1550 pg/mL (211-911)
[2024-12-01 00:15] VITALS: BP 145/53; PULSE 76; RESP 18; TEMP 37
[2024-12-01 00:54] LABS: CREATINE KINASE MB FRACTION 0.7 ng/mL (0.5-3.6); TROPONIN I HIGH SENSITIVITY 22.0 ng/L (3.0-53)
[2024-12-01 01:42] LABS: CREATININE 4.4 mg/dL (0.6-1.3); UREA NITROGEN BLOOD 55.0 mg/dL (9-23)
[2024-12-01] MEDS ORDERED: CEFEPIME 2GM PREMIX 100ML IV SCH (06:00)
[2024-12-01] MEDS: BLOOD SUGAR DIAGNOSTIC STRIP TEST SCH (07:10)
[2024-12-01] MEDS: INSULIN LISPRO 100 UNITS/ML SUBCUT SCH (07:40)
[2024-12-01] MEDS: DEXT 5%/0.9% NACL 1,000 ML IV ONE (07:52)
[2024-12-01 07:56] LABS: CREATININE 4.6 mg/dL (0.6-1.3)
[2024-12-01 07:57] LABS: CREATINE KINASE MB FRACTION 0.9 ng/mL (0.5-3.6); PLATELET 156 x1000/uL (130-400); RED BLOOD CELL COUNT 3.36 mill/uL (4.7-6.1); RED CELL DISTRIBUTION WIDTH 16.2 % (11.6-14.6); TRIGLYCERIDE 68 mg/dL (0-150); TROPONIN I HIGH SENSITIVITY 51.0 ng/L (3.0-53); UREA NITROGEN BLOOD 55 mg/dL (9-23)
[2024-12-01 07:58] LABS: LDL CHOLESTEROL 24 mg/dL (5-100)
[2024-12-01 07:59] LABS: PHOSPHORUS 5.4 mg/dL (2.5-4.9)
[2024-12-01 08:00] VITALS: BP 138/60; PULSE 66; RESP 18; TEMP 36.4; O2SAT 100
[2024-12-01] MEDS: ACETAMINOPHEN 325MG TABLET PO PRN (08:01)
[2024-12-01] MEDS: DEXTROSE 50% WATER 50ML SYRINGE IV PRN (08:24)
[2024-12-01] MEDS: FUROSEMIDE 40MG/4ML VIAL IVP SCH (09:18)
[2024-12-01] MEDS: ASPIRIN 81MG EC TABLET PO SCH (09:19)
[2024-12-01] MEDS: CLOPIDOGREL 75MG TABLET PO SCH (09:19)
[2024-12-01 12:00] VITALS: BP 155/79; PULSE 67; RESP 18; TEMP 36.5; O2SAT 97
[2024-12-01] MEDS ORDERED: CEFEPIME 1GM PREMIX 50ML IV SCH (12:00)
[2024-12-01] MEDS: PIPERACILLIN/TAZO 3.375G/50ML 50 ML IV SCH (13:25)
[2024-12-01] MEDS: VANCOMYCIN 1GM/200ML PMX (BAXTER) IV SCH (13:35)
[2024-12-01 16:00] VITALS: BP 171/65; PULSE 70; RESP 19; TEMP 36.5; O2SAT 97
[2024-12-01] MEDS: CLONIDINE 0.1MG TABLET PO PRN (16:57)
[2024-12-01] MEDS: DOCUSATE SODIUM 100MG CAPSULE PO PRN (19:45)
[2024-12-01 20:00] VITALS: BP 129/54; PULSE 77; RESP 20; TEMP 37; O2SAT 97
[2024-12-02] VITALS (9 sets, daily range): BP systolic 105–180; BP diastolic 45–83; PULSE 72–93; RESP 18–50; TEMP 36.6–37; O2SAT 96–98
[2024-12-02 07:51] LABS: HEMATOCRIT. 33.1 % (42.0-52.0); HEMOGLOBIN. 11.0 g/dL (14.0-18.0); MEAN PLATELET VOLUME 9.2 fl (7.4-10.4); PLATELET 112 x1000/uL (130-400); RED BLOOD CELL COUNT 3.34 mill/uL (4.7-6.1); RED CELL DISTRIBUTION WIDTH 17.0 % (11.6-14.6); UREA NITROGEN BLOOD 70 mg/dL (9-23)
[2024-12-02 07:52] LABS: ASPARTATE AMINOTRANSFERASE 171 IU/L (<34)
[2024-12-02 07:53] LABS: BILIRUBIN DIRECT 3.4 mg/dL (<=3.0); BILIRUBIN TOTAL 4.6 mg/dL (0.1-1.0); PROTEIN TOTAL 6.4 g/dL (6.0-8.3)
[2024-12-02 08:01] LABS: CREATININE 5.5 mg/dL (0.6-1.3)
[2024-12-02] MEDS ORDERED: MEROPENEM 1,000 MG in SODIUM CHLORIDE 0.9% 100 ML IV SCH (13:00)
[2024-12-02] MEDS: MEROPENEM 1G/100ML IV SCH (17:19)
[2024-12-02 18:16] LABS: BAND% 6.0 % (1.0-6.0); LYMPHOCYTES % MANUAL 9.0 % (20.0-50.0); MONOCYTES % MANUAL 6.0 % (2.0-8.0); NEUTROPHILS % MANUAL 79.0 % (45.0-75.0); PLATELET ESTIMATE DECREASED
[2024-12-03] VITALS (14 sets, daily range): BP systolic 96–132; BP diastolic 26–70; PULSE 67–78; RESP 17–20; TEMP 36.114–37.1; O2SAT 97–100
[2024-12-03 07:47] LABS: BASOPHILS % 0.7 % (0.0-2.0); EOSINOPHILS % 3.1 % (0.0-5.0); HEMATOCRIT. 30.6 % (42.0-52.0); HEMOGLOBIN. 10.2 g/dL (14.0-18.0); LYMPHOCYTES % 10.5 % (20.0-50.0); MEAN PLATELET VOLUME 9.2 fl (7.4-10.4); MONOCYTES % 9.2 % (2.0-8.0); NEUTROPHILS % 76.5 % (40.0-76.0); PLATELET 115 x1000/uL (130-400); RED BLOOD CELL COUNT 3.12 mill/uL (4.7-6.1); RED CELL DISTRIBUTION WIDTH 16.3 % (11.6-14.6)
[2024-12-03 08:25] LABS: UREA NITROGEN BLOOD 58.0 mg/dL (9-23)
[2024-12-03 09:10] LABS: CREATININE 5.0 mg/dL (0.6-1.3)
[2024-12-03] MEDS ORDERED: LIDOCAINE HCL 1% 10 MG/ML 10ML VIAL ONE (12:48)
[2024-12-03] MEDS: MEROPENEM 500MG/50ML IV SCH (18:21)
[2024-12-04] VITALS: BP 122/47; PULSE 77; RESP 18; TEMP 36.4; O2SAT 100
[2024-12-04 04:00] VITALS: BP 100/47; PULSE 77; RESP 18; TEMP 36.6; O2SAT 100
[2024-12-04 07:10] LABS: BASOPHILS % 0.6 % (0.0-2.0); EOSINOPHILS % 3.4 % (0.0-5.0); HEMATOCRIT. 31.1 % (42.0-52.0); HEMOGLOBIN. 10.3 g/dL (14.0-18.0); LYMPHOCYTES % 10.6 % (20.0-50.0); MEAN PLATELET VOLUME 9.3 fl (7.4-10.4); MONOCYTES % 10.8 % (2.0-8.0); NEUTROPHILS % 74.6 % (40.0-76.0); PLATELET 109 x1000/uL (130-400); RED BLOOD CELL COUNT 3.18 mill/uL (4.7-6.1); RED CELL DISTRIBUTION WIDTH 16.2 % (11.6-14.6)
[2024-12-04] MEDS ORDERED: LIDOCAINE HCL 1% 10 MG/ML 10ML VIAL ONE (07:37)
[2024-12-04 07:55] LABS: CREATININE 4.2 mg/dL (0.6-1.3); UREA NITROGEN BLOOD 38 mg/dL (9-23)
[2024-12-04 07:57] LABS: ASPARTATE AMINOTRANSFERASE 132 IU/L (<34); BILIRUBIN DIRECT 3.3 mg/dL (<=3.0); BILIRUBIN TOTAL 4.3 mg/dL (0.1-1.0); PROTEIN TOTAL 5.9 g/dL (6.0-8.3)
[2024-12-04 08:00] VITALS: BP 118/48; PULSE 96; RESP 18; TEMP 36.5; O2SAT 99
[2024-12-04 12:00] VITALS: BP 116/71; PULSE 77; RESP 18; TEMP 36.7; O2SAT 100
[2024-12-04 16:00] VITALS: BP 141/40; PULSE 80; RESP 18; TEMP 36.7; O2SAT 100
[2024-12-04 20:00] VITALS: BP 154/44; PULSE 74; RESP 18; TEMP 36.6; O2SAT 99
[2024-12-05] VITALS (7 sets, daily range): BP systolic 124–153; BP diastolic 43–81; PULSE 70–80; RESP 17–18; TEMP 36.2–36.61404; O2SAT 97–100
[2024-12-05 09:21] LABS: BASOPHILS % 0.7 % (0.0-2.0); EOSINOPHILS % 6.5 % (0.0-5.0); HEMATOCRIT. 32.6 % (42.0-52.0); HEMOGLOBIN. 10.7 g/dL (14.0-18.0); LYMPHOCYTES % 13.5 % (20.0-50.0); MEAN PLATELET VOLUME 8.6 fl (7.4-10.4); MONOCYTES % 10.1 % (2.0-8.0); NEUTROPHILS % 69.2 % (40.0-76.0); PLATELET 121 x1000/uL (130-400); RED BLOOD CELL COUNT 3.34 mill/uL (4.7-6.1); RED CELL DISTRIBUTION WIDTH 15.8 % (11.6-14.6)
[2024-12-05 09:38] LABS: UREA NITROGEN BLOOD 47.0 mg/dL (9-23)
[2024-12-05 09:45] LABS: CREATININE 5.2 mg/dL (0.6-1.3)
[2024-12-05] MEDS ORDERED: LIDOCAINE HCL 1% 10 MG/ML 10ML VIAL ONE (12:30)
[2024-12-06] VITALS: BP 153/58; PULSE 72; RESP 17; TEMP 36.2; O2SAT 98
[2024-12-06 04:00] VITALS: BP 153/42; PULSE 100; RESP 16; TEMP 36.2; O2SAT 97
[2024-12-06 08:00] VITALS: BP 145/50; PULSE 78; RESP 18; TEMP 36.5; O2SAT 100
[2024-12-06 08:05] LABS: HEMATOCRIT. 31.7 % (42.0-52.0); HEMOGLOBIN. 10.6 g/dL (14.0-18.0); MEAN PLATELET VOLUME 8.9 fl (7.4-10.4); PLATELET 128 x1000/uL (130-400); RED BLOOD CELL COUNT 3.29 mill/uL (4.7-6.1); RED CELL DISTRIBUTION WIDTH 16.1 % (11.6-14.6)
[2024-12-06 08:51] LABS: UREA NITROGEN BLOOD 54 mg/dL (9-23)
[2024-12-06 08:52] LABS: ASPARTATE AMINOTRANSFERASE 89 IU/L (<34)
[2024-12-06 08:53] LABS: BILIRUBIN DIRECT 2.3 mg/dL (<=3.0); BILIRUBIN TOTAL 3.1 mg/dL (0.1-1.0); PROTEIN TOTAL 6.2 g/dL (6.0-8.3)
[2024-12-06 09:04] LABS: CREATININE 5.9 mg/dL (0.6-1.3)
[2024-12-06 12:00] VITALS: BP 143/64; PULSE 83; RESP 19; TEMP 36.6; O2SAT 98
[2024-12-06 12:34] LABS: BAND% 2.0 % (1.0-6.0); EOSINOPHILS % MANUAL 10.0 % (0.0-5.0); LYMPHOCYTES % MANUAL 16.0 % (20.0-50.0); MONOCYTES % MANUAL 10.0 % (2.0-8.0); NEUTROPHILS % MANUAL 62.0 % (45.0-75.0)
[2024-12-06 12:35] LABS: PLATELET ESTIMATE SLIGHTLY DECREASED
[2024-12-06 16:00] VITALS: BP 139/43; PULSE 80; RESP 19; TEMP 36.5; O2SAT 100
[2024-12-06 20:00] VITALS: BP 98/40; PULSE 78; RESP 18; TEMP 36.4; O2SAT 99
[2024-12-07] VITALS (14 sets, daily range): BP systolic 103–160; BP diastolic 39–78; PULSE 68–90; RESP 16–20; TEMP 36.1–36.7; O2SAT 96–99
[2024-12-08] VITALS: BP 145/60; PULSE 90; RESP 20; TEMP 36.6; O2SAT 98
[2024-12-08 04:00] VITALS: BP 147/79; PULSE 82; RESP 20; TEMP 36.8; O2SAT 98
[2024-12-08 06:57] LABS: BASOPHILS % 1.0 % (0.0-2.0); EOSINOPHILS % 7.3 % (0.0-5.0); HEMATOCRIT. 31.0 % (42.0-52.0); HEMOGLOBIN. 10.3 g/dL (14.0-18.0); LYMPHOCYTES % 16.8 % (20.0-50.0); MEAN PLATELET VOLUME 8.7 fl (7.4-10.4); MONOCYTES % 9.3 % (2.0-8.0); NEUTROPHILS % 65.6 % (40.0-76.0); PLATELET 148 x1000/uL (130-400); RED BLOOD CELL COUNT 3.17 mill/uL (4.7-6.1); RED CELL DISTRIBUTION WIDTH 15.9 % (11.6-14.6)
[2024-12-08 07:26] LABS: UREA NITROGEN BLOOD 47.0 mg/dL (9-23)
[2024-12-08 07:48] LABS: CREATININE 5.5 mg/dL (0.6-1.3)
[2024-12-08 08:00] VITALS: BP 140/82; PULSE 80; RESP 18; TEMP 36.6; O2SAT 100
[2024-12-08 12:00] VITALS: BP 146/77; PULSE 86; RESP 16; TEMP 36.9; O2SAT 96
[2024-12-08 16:00] VITALS: BP 179/72; PULSE 77; RESP 21; TEMP 36.7; O2SAT 97
[2024-12-08 20:00] VITALS: BP 150/72; PULSE 82; RESP 20; TEMP 36.7; O2SAT 98
[2024-12-09] VITALS (10 sets, daily range): BP systolic 99–169; BP diastolic 48–74; PULSE 74–87; RESP 16–20; TEMP 36.6–37; O2SAT 96–100
[2024-12-09] MEDS ORDERED: LIDOCAINE HCL 1% 10 MG/ML 10ML VIAL ONE (10:21)
[2024-12-09] MEDS ORDERED: HEPARIN 1000 UNITS/ML 10ML ONE (10:36)
[2024-12-09] MEDS ORDERED: IOHEXOL-300 100 ML BOTTLE ONE (10:54)
[2024-12-10] VITALS: BP 148/66; PULSE 80; RESP 18; TEMP 36.8; O2SAT 97
[2024-12-10 04:00] VITALS: BP 153/56; PULSE 79; RESP 18; TEMP 36.9; O2SAT 98
[2024-12-10 08:00] VITALS: BP 141/52; PULSE 84; RESP 18; TEMP 36.4; O2SAT 98
[2024-12-10 09:20] LABS: BASOPHILS % 1.0 % (0.0-2.0); EOSINOPHILS % 7.0 % (0.0-5.0); HEMATOCRIT. 30.9 % (42.0-52.0); HEMOGLOBIN. 10.0 g/dL (14.0-18.0); LYMPHOCYTES % 20.6 % (20.0-50.0); MEAN PLATELET VOLUME 8.6 fl (7.4-10.4); MONOCYTES % 9.8 % (2.0-8.0); NEUTROPHILS % 61.6 % (40.0-76.0); PLATELET 162 x1000/uL (130-400); RED BLOOD CELL COUNT 3.15 mill/uL (4.7-6.1); RED CELL DISTRIBUTION WIDTH 15.7 % (11.6-14.6)
[2024-12-10 09:45] LABS: UREA NITROGEN BLOOD 43.0 mg/dL (9-23)
[2024-12-10 10:01] LABS: CREATININE 5.6 mg/dL (0.6-1.3)
[2024-12-10 12:00] VITALS: BP 150/54; PULSE 82; RESP 19; TEMP 36.7; O2SAT 97
[2024-12-10 16:00] VITALS: BP 186/79; PULSE 102; RESP 18; TEMP 36.5; O2SAT 100
[2024-12-10] MEDS: MENTHOL/LANOLIN/CALAMINE/ZN OX OINT 71GM TOP SCH (16:06)
[2024-12-10 20:00] VITALS: BP 103/34; PULSE 89; RESP 17; TEMP 36.2; O2SAT 97
[2024-12-11] VITALS (10 sets, daily range): BP systolic 105–151; BP diastolic 34–74; PULSE 64–97; RESP 17–20; TEMP 36.1–36.8; O2SAT 98–100
[2024-12-11 06:39] LABS: UREA NITROGEN BLOOD 50.0 mg/dL (9-23)
[2024-12-11 06:50] LABS: BASOPHILS % 1.0 % (0.0-2.0); EOSINOPHILS % 7.0 % (0.0-5.0); HEMATOCRIT. 29.6 % (42.0-52.0); HEMOGLOBIN. 9.8 g/dL (14.0-18.0); LYMPHOCYTES % 20.6 % (20.0-50.0); MEAN PLATELET VOLUME 8.5 fl (7.4-10.4); MONOCYTES % 9.0 % (2.0-8.0); NEUTROPHILS % 62.4 % (40.0-76.0); PLATELET 179 x1000/uL (130-400); RED BLOOD CELL COUNT 3.01 mill/uL (4.7-6.1); RED CELL DISTRIBUTION WIDTH 15.2 % (11.6-14.6)
[2024-12-11 07:07] LABS: CREATININE 6.1 mg/dL (0.6-1.3)
[2024-12-12] VITALS (14 sets, daily range): BP systolic 86–148; BP diastolic 30–85; PULSE 75–112; RESP 17–20; TEMP 36.3–36.61404; O2SAT 97–100
[2024-12-12 06:39] LABS: BASOPHILS % 1.2 % (0.0-2.0); EOSINOPHILS % 6.6 % (0.0-5.0); HEMATOCRIT. 29.5 % (42.0-52.0); HEMOGLOBIN. 9.8 g/dL (14.0-18.0); LYMPHOCYTES % 17.6 % (20.0-50.0); MEAN PLATELET VOLUME 8.3 fl (7.4-10.4); MONOCYTES % 8.6 % (2.0-8.0); NEUTROPHILS % 66.0 % (40.0-76.0); PLATELET 173 x1000/uL (130-400); RED BLOOD CELL COUNT 2.98 mill/uL (4.7-6.1); RED CELL DISTRIBUTION WIDTH 15.5 % (11.6-14.6)
[2024-12-12 06:58] LABS: UREA NITROGEN BLOOD 50.0 mg/dL (9-23)
[2024-12-12 07:13] LABS: CREATININE 6.0 mg/dL (0.6-1.3)
[2024-12-13] VITALS: BP 111/35; PULSE 81; RESP 17; TEMP 36.2; O2SAT 93
[2024-12-13 04:00] VITALS: BP 118/37; PULSE 107; RESP 16; TEMP 36.3; O2SAT 93
[2024-12-13 06:40] LABS: BASOPHILS % 0.9 % (0.0-2.0); EOSINOPHILS % 6.0 % (0.0-5.0); HEMATOCRIT. 28.7 % (42.0-52.0); HEMOGLOBIN. 9.4 g/dL (14.0-18.0); LYMPHOCYTES % 15.1 % (20.0-50.0); MEAN PLATELET VOLUME 8.8 fl (7.4-10.4); MONOCYTES % 7.3 % (2.0-8.0); NEUTROPHILS % 70.7 % (40.0-76.0); PLATELET 165 x1000/uL (130-400); RED BLOOD CELL COUNT 2.91 mill/uL (4.7-6.1); RED CELL DISTRIBUTION WIDTH 15.6 % (11.6-14.6)
[2024-12-13 07:05] LABS: CREATININE 4.4 mg/dL (0.6-1.3); UREA NITROGEN BLOOD 28.0 mg/dL (9-23)
[2024-12-13 08:00] VITALS: BP 124/29; PULSE 81; RESP 19; TEMP 36.6; O2SAT 100
[2024-12-13 12:00] VITALS: BP 107/36; PULSE 79; RESP 18; TEMP 36.6; O2SAT 100
[2024-12-13 16:00] VITALS: BP 159/38; PULSE 74; RESP 14; TEMP 36.6; O2SAT 100
[2024-12-13 20:39] VITALS: BP 103/71; PULSE 81; RESP 19; TEMP 36.6; O2SAT 99
[2024-12-14] VITALS: BP 103/47; PULSE 80; RESP 16; TEMP 36.9; O2SAT 96
[2024-12-14 04:00] VITALS: BP 121/51; PULSE 98; RESP 20; TEMP 36.7; O2SAT 99
[2024-12-14 07:34] LABS: BASOPHILS % 1.1 % (0.0-2.0); EOSINOPHILS % 6.8 % (0.0-5.0); HEMATOCRIT. 28.6 % (42.0-52.0); HEMOGLOBIN. 9.6 g/dL (14.0-18.0); LYMPHOCYTES % 15.0 % (20.0-50.0); MEAN PLATELET VOLUME 8.6 fl (7.4-10.4); MONOCYTES % 8.1 % (2.0-8.0); NEUTROPHILS % 69.0 % (40.0-76.0); PLATELET 174 x1000/uL (130-400); RED BLOOD CELL COUNT 2.92 mill/uL (4.7-6.1); RED CELL DISTRIBUTION WIDTH 15.2 % (11.6-14.6)
[2024-12-14 07:53] LABS: UREA NITROGEN BLOOD 39.0 mg/dL (9-23)
[2024-12-14 08:00] VITALS: BP 121/54; PULSE 84; RESP 17; TEMP 36.7; O2SAT 100
[2024-12-14 08:11] LABS: CREATININE 5.4 mg/dL (0.6-1.3)
[2024-12-14] MEDS: BENZONATATE 100MG CAPSULE PO SCH (10:16)
[2024-12-14] MEDS: CALCIUM ACETATE 667MG CAPSULE PO SCH (11:55)
[2024-12-14 12:00] VITALS: BP 120/61; PULSE 80; RESP 18; TEMP 36.6; O2SAT 100
[2024-12-14] MEDS: ENOXAPARIN 30MG/0.3ML SYR SUBCUT SCH (15:33)
[2024-12-14 16:00] VITALS: BP 121/67; RESP 17; TEMP 36.2; O2SAT 100
[2024-12-14 20:00] VITALS: BP 122/26; PULSE 82; RESP 16; TEMP 36.1; O2SAT 94
[2024-12-15] VITALS (14 sets, daily range): BP systolic 102–170; BP diastolic 38–56; PULSE 60–110; RESP 16–20; TEMP 36.1–37; O2SAT 96–100
[2024-12-15 09:59] LABS: UREA NITROGEN BLOOD 47.0 mg/dL (9-23)
[2024-12-15 10:10] LABS: CREATININE 6.7 mg/dL (0.6-1.3)
[2024-12-15] MEDS ORDERED: LIDOCAINE HCL 1% 10 MG/ML 10ML VIAL ONE (13:59)
== END 2024-12-15 20:20 | disposition home health service (06) | DRG 871 ==
LOC: ER 16:23 → EDBEDREQ 17:05 → 8WST 20:25 → CMPBEDREQ 20:29 → ENRESERV 21:57 → 8WST 12-01 11:55
PROVIDERS: ADMIT Hospitalist; ATTEND Hospitalist
PROC: 5A1D70Z Performance of Urinary Filtration, Intermittent, Less than 6 Hours Per Day (ICD-10-PCS; 2024-12-02)
PROC: 05HY33Z Insertion of Infusion Device into Upper Vein, Percutaneous Approach (ICD-10-PCS; principal; 2024-12-03)
PROC: B54NZZA Ultrasonography of Left Upper Extremity Veins, Guidance (ICD-10-PCS; 2024-12-03)
PROC: 5A1D70Z Performance of Urinary Filtration, Intermittent, Less than 6 Hours Per Day (ICD-10-PCS; 2024-12-03)
PROC: 05PY33Z Removal of Infusion Device from Upper Vein, Percutaneous Approach (ICD-10-PCS; 2024-12-04)
PROC: 06HY33Z Insertion of Infusion Device into Lower Vein, Percutaneous Approach (ICD-10-PCS; 2024-12-05)
PROC: B54BZZA Ultrasonography of Right Lower Extremity Veins, Guidance (ICD-10-PCS; 2024-12-05)
PROC: 5A1D70Z Performance of Urinary Filtration, Intermittent, Less than 6 Hours Per Day (ICD-10-PCS; 2024-12-05)
PROC: 5A1D70Z Performance of Urinary Filtration, Intermittent, Less than 6 Hours Per Day (ICD-10-PCS; 2024-12-07)
PROC: 02HV33Z Insertion of Infusion Device into Superior Vena Cava, Percutaneous Approach (ICD-10-PCS; 2024-12-09)
PROC: B548ZZA Ultrasonography of Superior Vena Cava, Guidance (ICD-10-PCS; 2024-12-09)
PROC: B5131ZZ Fluoroscopy of Right Jugular Veins using Low Osmolar Contrast (ICD-10-PCS; 2024-12-09)
PROC: 5A1D70Z Performance of Urinary Filtration, Intermittent, Less than 6 Hours Per Day (ICD-10-PCS; 2024-12-09)
PROC: 5A1D70Z Performance of Urinary Filtration, Intermittent, Less than 6 Hours Per Day (ICD-10-PCS; 2024-12-11)
PROC: 5A1D70Z Performance of Urinary Filtration, Intermittent, Less than 6 Hours Per Day (ICD-10-PCS; 2024-12-12)
PROC: 06H033Z Insertion of Infusion Device into Inferior Vena Cava, Percutaneous Approach (ICD-10-PCS; 2024-12-15)
PROC: 0JH63XZ Insertion of Tunneled Vascular Access Device into Chest Subcutaneous Tissue and Fascia, Percutaneous Approach (ICD-10-PCS; 2024-12-15)
PROC: B5191ZA Fluoroscopy of Inferior Vena Cava using Low Osmolar Contrast, Guidance (ICD-10-PCS; 2024-12-15)
PROC: 5A1D70Z Performance of Urinary Filtration, Intermittent, Less than 6 Hours Per Day (ICD-10-PCS; 2024-12-15)
DX: A41.51 Sepsis due to Escherichia coli [E. coli] (principal); G92.8 Other toxic encephalopathy; N18.6 End stage renal disease; J18.9 Pneumonia, unspecified organism; E87.20 Acidosis, unspecified; S36.119A Unspecified injury of liver, initial encounter; E46 Unspecified protein-calorie malnutrition; J98.11 Atelectasis; I12.0 Hypertensive chronic kidney disease with stage 5 chronic kidney disease or end stage renal disease; Z16.12 Extended spectrum beta lactamase (ESBL) resistance; Z16.19 Resistance to other specified beta lactam antibiotics; D53.9 Nutritional anemia, unspecified; E87.5 Hyperkalemia; I25.10 Atherosclerotic heart disease of native coronary artery without angina pectoris; E11.22 Type 2 diabetes mellitus with diabetic chronic kidney disease; E11.51 Type 2 diabetes mellitus with diabetic peripheral angiopathy without gangrene; E11.649 Type 2 diabetes mellitus with hypoglycemia without coma; E78.5 Hyperlipidemia, unspecified; K56.41 Fecal impaction; B96.1 Klebsiella pneumoniae [K. pneumoniae] as the cause of diseases classified elsewhere; R74.01 Elevation of levels of liver transaminase levels; L89.101 Pressure ulcer of unspecified part of back, stage 1; E83.39 Other disorders of phosphorus metabolism; K52.9 Noninfective gastroenteritis and colitis, unspecified; R13.10 Dysphagia, unspecified; R65.20 Severe sepsis without septic shock; Z79.02 Long term (current) use of antithrombotics/antiplatelets; Z79.82 Long term (current) use of aspirin; Z86.16 Personal history of COVID-19; Z89.511 Acquired absence of right leg below knee; Z89.512 Acquired absence of left leg below knee; Z99.2 Dependence on renal dialysis; X58.XXXA Exposure to other specified factors, initial encounter; Y93.89 Activity, other specified; Y92.89 Other specified places as the place of occurrence of the external cause; Y99.8 Other external cause status; Z68.25 Body mass index [BMI] 25.0-25.9, adult
CPT/HCPCS: 36415; 36556; 36573; 36589; 71045; 74176; 76937; 77001; 80048; 80061; 80076; 80305; 80307; 80320; 80329; 81003; 82140; 82550; 82553; 82607; 82746; 82962; 83036; 83605; 83735; 83880; 84100; 84145; 84439; 84443; 84484; 85025; 85027; 85379; 86705; 86709; 87070; 87077; 87186; 87340; 90935; 93005; 93970; 97110; 97162; 97166; 97530; 97535; 99291; A4606; C1725; C1750; C1752; C1769; C1887; J0692; J1308; J1642; J1644; J1650; J1815; J1940; J2003; J2185; J2543; J3370; Q9967; G0480